=== PATIENT | male | born 1985 | race Caucasian/White ===

== ENCOUNTER 2020-06-06 16:17 | Emergency (ER) | payer SELFPAY ==
[~2020-06-06] VITALS: Ht 182.9 cm; Wt 97.5 kg
[2020-06-06 16:36] VITALS: BP 158/86
--- NOTE | 2020-06-06 16:43 | NUR ---
PANCREATITISPATIENT PRESENTS TO ED FOR PRE-BOOK. PT PRESENTS WITH EXCESSIVE SPEECH BODY SHAKINGS, AND IRRITATION. PATIENT STATES PAIN OF 0/10 AT THIS TIME; VSS; PATIENT POSITIONED FOR COMFORT IN [place]. ER MD MADE AWARE OF PT STATUS.
[2020-06-06 17:05] VITALS: BP 157/81
--- NOTE | 2020-06-06 17:05 | NUR ---
Patient discharged with v/s stable. Written and verbal after care instructions given and explained. Ambulatory with PD to custody. All questions addressed prior to discharge. Advised to follow up with PMD.
== END 2020-06-06 17:05 ==
LOC: MED 16:17
DX: M54.5 Low back pain (principal); I10 Essential (primary) hypertension; K85.90 Acute pancreatitis without necrosis or infection, unspecified; Z02.89 Encounter for other administrative examinations; Z90.49 Acquired absence of other specified parts of digestive tract
CPT/HCPCS: 99283